=== PATIENT | female | born 1965 | race Caucasian/White ===

== ENCOUNTER 2020-10-30 16:56 | Inpatient (IN) | payer BC, OTHER ==
--- OUTSIDE RECORDS SUMMARY | 2020-10-30 16:58 | XMS REPORT | Continuity of Care Document ---
:1965 Author Organization [facility] t Address [address] [place] [address] Care Team Providers Name Role Phone Les BONILLA P. Primary Care Physician Hero BONILLA Attending Clinician Payers Payer Name Policy Type Policy Effective Date Expiration Date Sour ce Number AETNAAETNA PPO [id number] 2017 [facility] OPEN 00:00:00 [facility] [id number] 2017-Presen tPPO Problems Condition Condition Condition Status Onset Resolution Last Treating Co mments Source Name Details Category Date Date Treatment Clinician Date Prolapse Prolapse Disease Active [place] of female of female 03-31 Meth rick pelvic pelvic 00:00: st organs organs 00 Endometrio Endometrio Disease Active [facility] sis sis 03-31 Methodi 00:00: st 00 S/P S/P Disease Active [facility] appendecto appendecto 03-31 Me [facility] my my 00:00: st 00 History of History of Disease Active [place] hysterecto hysterecto 03-31 Me th[facility] my with my with 00:00: st oophorecto oophorecto 00 my my History of History of Disease Active [place] colitis colitis 03-31 Methodi 00:00: st 00 GERD GERD Disease Active [facility] (gastroeso (gastroeso 03-31 Me [facility] phageal phageal 00:00: st reflux reflux 00 disease) disease) IBS IBS Disease Active [facility] (irritable (irritable 03-31 Me [facility] bowel bowel 00:00: st syndrome) syndrome) 00 Hemorrhoid Hemorrhoid Disease Active [place] s s 03-31 Methodi 00:00: st 00 Menopausal Menopausal Disease Active [place] syndrome syndrome 03-18 Method i 00:00: st 00 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 Family History Family Member Diagnosis Comments Start Date Stop Date Source Natural father COPD [facility] Natural father Deep vein thrombosis [facility] Social History Social Habit Start Date Stop Date Quantity Comments Source Tobacco use and 2019-01-25 2019-01-25 Never used [facility] jayroodi exposure 00:00:00 00:00:00 Alcohol intake 2019-01-25 2019-01-25 Current drinker [place] [facility] 00:00:00 00:00:00 of alcohol (finding) Sex Ass[birth year] [facility] farida 00:00:00 00:00:00 Smoking Status Start Date Stop Date Source Never smoker [facility] t Medications Ordered Filled Start Stop Current Ordering Indication Dosage Frequency Signature Comments Components Source Medication Medication Date Date Medication? Clinician (SIG) Name Name omeprazole 2020- No 40mg Q.5D TAKE 1 [place] (PriLOSEC) 03-31- CAPSULE Metho di 40 MG 00:00: 23:59 ([address] capsule 00 :00 TOTAL) BY MOUTH 2 (TWO) TIMES A DAY FOR 60 DAYS. promethazin Yes 25mg Q4H Take 1 [place] e 1-09 tablet (25 [facility] (PHENERGAN) 00:00: mg total) s t 25 MG 00 by mouth tablet every 4 (four) hours as needed for nausea or vomiting for up to 50 doses. multivitami Yes 1{tbl} QD Take 1 [place] with 7-17 tablet by [facility] minerals 14:58: mouth st tablet 57 daily. omeprazole 2020- No 40mg Q.5D Take 1 [place] (PriLOSEC) 01-25-20 capsule Metho di 40 MG 00:00: 00:00 ([address] capsule 00 :00 total) by mouth 2 (two) times a day for 60 days. amitriptyli 2016-07 Yes History of TAKE 1 [facility] (ELAVIL) 2-22 IBS TABLET Method i 25 MG 00:00: NIGHTLY st tablet 00 diclofenac Yes Q.25D Apply [place] (VOLTAREN) 9-13 topically Meth rick 1 % gel 00:00: 4 (four) st 00 times a day. nystatin-tr 2013-07 Yes 1g Apply 1 g [place] iamcinolone 2-15 topically. Me thodi (MYCOLOG 00:00: st II) cream 00 esterified 2013-07 Yes TAKE 1 [place] estrogens 1-19 TABLET Metho di (MENEST) 00:00: INSTRUCTED st 0.625 MG 00 tablet Immunizations Ordered Immunization Filled Immunization Date Status Commen ts Source Name Name Uli 2016-03-24 Completed [facility] 00:00:00 [facility] Procedures This patient has no known procedures. Plan of Care Planned Activity Planned Date Details Comments Source Future Scheduled 2021-05-08 BREAST CANCER [facility] Me thodist Test 00:00:00 SCREENING [code = BREAST CANCER SCREENING] Future Scheduled 2019-07-12 COLONOSCOPY SCREENING [place] [facility] Test 00:00:00 [code = COLONOSCOPY SCREENING] Future Scheduled 2019-03-17 Screening for [facility] thodist Test 00:00:00 malignant neoplasm of cervix (procedure) [code = 199048158] Future Scheduled 2014 SHINGLES VACCINES [place] [facility] Test 00:00:00 (#1) [code = SHINGLES VACCINES (#1)] Future Scheduled 1982 Hepatitis C screening [place] [facility] Test 00:00:00 (procedure) [code = 996059537] Future Scheduled 1980 COVID-19 VACCINE (1) [facility] Test 00:00:00 [code = COVID-19 VACCINE (1)] Encounters Start End Encounter Admission Attending Care Care Encounter Source Date/Time Date/Time Type Type Clinicians Facility Department ID 2019-04-21 Outpatient [id number] 10:44:20 [facility] 2018-12-08 2018-12-08 Outpatient [facility] 7501 06:37:00 06:37:00 [facility] Results This patient has no known results.
[2020-10-30 17:57] LABS: Absolute Lymphocytes (CBC) 1.7 K/uL (0.7-4.9); Basophils % 0.3 % (0-1.3); Hematocrit 43.1 % (36.0-45.0); Lymphocytes % 19.1 % (15.3-44.8); MPV 8.9 fL (7.6-11.3)
--- NOTE | 2020-10-30 17:58 | RAD REPORT ---
EXAM DESCRIPTION: RAD - Chest Single View - 10/30/2020 5:15 pm CLINICAL HISTORY: DYSPNEA, COVID positive COMPARISON: None TECHNIQUE: AP portable chest image was obtained 10/30/2020 5:15 pm . FINDINGS: Dense consolidation is seen in the lateral mid left lung field with patchy alveolar opacit ies in each lower lung field. Right upper lung field is spared. Trachea is midline. Heart and vasculature are normal. No measurable pleural effusion and no pneumotho rax. No acute bony abnormality seen. No acute aortic findings suspected. IMPRESSION: Moderate-size pneumonia lateral mid left lung field with patchy opacification at each ba se. Bilateral COVID-19 pneumonia is the most likely etiology.
[2020-10-30 17:59] LABS: Protime INR 1.01
[2020-10-30 18:13] LABS: ALT/SGPT 46 U/L (12-78); AST/SGOT 34 U/L (15-37); Albumin 3.6 g/dL (3.4-5.0); Alkaline Phosphatase 127 U/L (45-117); BUN Blood Urea Nitrogen 22 mg/dL (7-18); Bicarbonate 25 mmol/L (21-32); Bilirubin Direct < 0.1 mg/dL (0-0.2); Bilirubin Total 0.2 mg/dL (0.2-1.0); Ferritin 48.5 ng/mL (8-388); Glucose Level 100 mg/dL (74-106); Lipase 104 U/L (73-393); Potassium 3.7 mmol/L (3.5-5.1); Protein, Total 7.5 g/dL (6.4-8.2); Sodium Level 140 mmol/L (136-145); Troponin (Emerg Dept Use Only) < 0.02 ng/mL (0.0-0.045)
--- NOTE | 2020-10-30 19:33 | RAD REPORT ---
EXAM DESCRIPTION: CT - Chest For Pe Angio - 10/30/2020 7:12 pm CLINICAL HISTORY: Chest pain;Dyspnea COMPARISON: Chest Single View dated 10/30/2020 TECHNIQUE: Dynamically enhanced 3 mm thick images of the chest were obtained during administration o f approximately 150mL Isovue 370 IV contrast. Coronal and oblique MIP reconstruction images were gene rated and reviewed. Exam utilizes a protocol to evaluate the pulmonary arterial tree. All CT scans are performed using dose optimization technique as appropriate and may include automated exposure control or mA/KV adjustment according to patient size. FINDINGS: No pulmonary emboli are identified. The aorta as imaged shows no acute or suspicious finding. No pericardial thickening or effusion. Moderate-size area of consolidation is seen in the peripheral aspect of the mid and upper aspect left upper lobe. Patchy ground-glass opacification seen in the bilateral lower lobes. Given the provided history, bilateral COVID-19 pneumonia is the single most likely etiology. No underlying mass or cavit ation. No pleural effusion or pleural thickening. No mediastinal or hilar suspicious masses. No chest wall masses or abnormal axillary lymphadenopathy. IMPRESSION: No pulmonary emboli identified. Bilateral COVID-19 pneumonia findings with moderately large left upper lobe pneumonia as the dominant finding.
--- NOTE | 2020-10-30 19:59 | EDPHYS ---
Physician Documentation [facility] Name: Wendi Castillo Age: 55 yrs Sex: Female : 1965 Arrival Date: 10/30/2020 Time: 17:01 Bed 18 Private MD: ED Physician Danish Correa HPI: 10/30 17:08 This 55 yrs old Female presents to ER via Ambulatory with complaints of jr8 Shortness Of Breath. 18:00 This 55 yrs old Female presents to ER via Ambulatory with complaints of jr8 Shortness Of Breath. 18:00 Patient presents with SOB after being dx with COVID 9 days ago. She reports her sats jr8 were in the 70% at home. She is unable to speak in full sentences and is tachypneic during interview. . Historical: - Allergies: 17:07 No Known Allergies; ll1 - PMHx: 17:07 GERD; Kidney stones; ll1 - PSHx: 17:07 neck/back sx; Hysterectomy; ll1 - Immunization history:: Flu vaccine is not up to date. - Social history:: Smoking status: Patient denies any tobacco usage or history of. ROS: 18:01 Abdomen/GI: Negative for abdominal pain, nausea, vomiting, diarrhea, and constipation, jr8 MS/Extremity: Negative for injury and deformity, Neuro: Negative for headache, weakness, numbness, tingling, and seizure. 18:01 Cardiovascular: Positive for chest pain. 18:01 Respiratory: Positive for shortness of breath, at rest. 18:05 All other systems are negative. jr8 Exam: 18:03 Chest/axilla: Normal chest wall appearance and motion. Nontender with no deformity. jr8 No lesions are appreciated. Back: No spinal tenderness. No costovertebral tenderness. Full range of motion. MS/ Extremity: Pulses equal, no cyanosis. Neurovascular intact. Full, normal range of motion. Neuro: Awake and alert, GCS 15, oriented to person, place, time, and situation. Cranial nerves II-XII grossly intact. Motor strength 5/5 in all extremities. Sensory grossly intact. Cerebellar exam normal. Normal gait. 18:03 Cardiovascular: Rate: normal, actual rate is 80 bpm, Rhythm: regular, Pulses: Pulses are 2+ in right radial artery and left radial artery. Heart sounds: normal. 18:03 Respiratory: moderate respiratory distress is noted, Respirations: labored breathing, that is moderate, grunting, that is moderate, tachypnea, that is moderate, Breath sounds: are clear throughout. Vital Signs: 15:45 BP 105 / 69; Pulse 95; Resp 30; Temp 97.1; Pulse Ox 89% on R/A; Weight 81.65 kg; Height ll1 5 ft. 8 in. (172.72 cm); Pain 7/10; 18:15 BP 127 / 79; Pulse 72; Resp 25 S; Pulse Ox 97% on R/A; jd3 19:48 BP 151 / 97; Pulse 71; Resp 32; Pulse Ox 88% on R/A; ea 21:16 BP 141 / 83; Pulse 71; Resp 28; Pulse Ox 100% on 4 lpm NC; ea 15:45 Body Mass Index 27.37 (81.65 kg, 172.72 cm) ll1 19:48 Pt placed on O2 at 2L ea MDM: 17:02 Patient medically screened. [facility] 19:56 Data reviewed: vital signs, nurses notes, lab test result(s), EKG, radiologic studies, [facility] CT scan, plain films. Data interpreted: Pulse oximetry: on room air is 88 %. Interpretation: hypoxia. Counseling: I had a detailed discussion with the patient and/or guardian regarding: the historical points, exam findings, and any diagnostic results supporting the discharge/admit diagnosis, lab results, radiology results, the need for further work-up and treatment in the hospital. 10/30 17:03 Order name: Blood Culture Adult (2) [facility] 10/30 17:03 Order name: BMP [facility] 10/30 17:03 Order name: C-Reactive Protein [facility] 10/30 17:03 Order name: CBC with Diff [facility] 10/30 17:03 Order name: D-Dimer [facility] 10/30 17:03 Order name: Ferritin [facility] 10/30 17:03 Order name: Lactate [facility] 10/30 17:03 Order name: LFT's [facility] 10/30 17:03 Order name: Lipase [facility] 10/30 17:03 Order name: Procalcitonin [facility] 10/30 17:03 Order name: PT-INR [facility] 10/30 17:03 Order name: Ptt, Activated; Complete Time: 18:46 [facility] 10/30 17:03 Order name: Troponin (emerg Dept Use Only); Complete Time: 18:23 [facility] 10/30 17:04 Order name: Blood Culture [facility] 10/30 17:03 Order name: CXR XRAY; Complete Time: 18:05 [facility] 10/30 17:04 Order name: Basic Metabolic Panel; Complete Time: 18:23 [facility] 10/30 17:04 Order name: C-Reactive Protein; Complete Time: 18:23 [facility] 10/30 17:04 Order name: CBC with Automated Diff; Complete Time: 18:46 [facility] 10/30 17:04 Order name: D-Dimer; Complete Time: 18:46 [facility] 10/30 17:04 Order name: Ferritin; Complete Time: 18:23 [facility] 10/30 17:04 Order name: Lactate; Complete Time: 18:46 [facility] 10/30 17:04 Order name: Liver (Hepatic) Function; Complete Time: 18:23 [facility] 10/30 17:04 Order name: Lipase; Complete Time: 18:23 [facility] 10/30 17:04 Order name: Procalcitonin; Complete Time: 18:46 [facility] 10/30 17:04 Order name: Protime (+INR); Complete Time: 18:46 [facility] 10/30 18:47 Order name: CT Chest For PE Angio; Complete Time: 19:47 [facility] 10/30 20:33 Order name: COVID-19 : Document "Date of Symptom Onset" if Symptomatic. 2 10/30 20:33 Order name: CORONAVIRUS [facility] 10/30 22:50 Order name: SARS-COV-2 RT PCR [facility] 10/30 17:03 Order name: EKG; Complete Time: 17:04 [facility] 10/30 17:03 Order name: Cardiac monitoring; Complete Time: 17:39 [facility] 10/30 17:03 Order name: Droplet/Contact Precautions; Complete Time: 17:39 [facility] 10/30 17:03 Order name: EKG - Nurse/Tech; Complete Time: 18:08 [facility] 10/30 17:03 Order name: IV Start; Complete Time: 17:38 [facility] 10/30 17:03 Order name: Labs collected and sent; Complete Time: 17:38 [facility] 10/30 17:03 Order name: O2 Per Protocol; Complete Time: 17:38 [facility] 10/30 17:03 Order name: O2 Sat Monitoring; Complete Time: 17:37 jr8 10/30 21:28 Order name: CONS Physician Consult EDMS Administered Medications: 20:15 Drug: SOLU-Medrol (methylPrednisoLONE) 125 mg Route: IVP; Site: right antecubital; ea 22:02 Follow up: Response: No adverse reaction ea Disposition: 10/31 06:59 Co-signature as Attending Physician, Danish Correa MD. rn Disposition: 10/30/20 19:58 Hospitalization ordered by Kait Guerrero for Inpatient Admission. Preliminary diagnosis are Acute respiratory failure with hypoxia, Pneumonia due to SARS-associated coronavirus. - Bed requested for Telemetry/MedSurg (Inpatient). - Status is Inpatient Admission. ea - Condition is Fair. - Problem is new. - Symptoms have improved. Signatures: Dispatcher [employer] EDMS Madeline Sequeira RN RN iw Nieto, Roman, MD MD rn Roszak, Josh, PA PA jr8 Francia Mcdowell RN RN ea Lewis, Lynsay, RN RN ll1 Corrections: (The following items were deleted from the chart) 10/30 22:36 19:58 Hospitalization Ordered by Kait Guerrero MD for Inpatient Admission. Preliminary iw diagnosis is Acute respiratory failure with hypoxia; Pneumonia due to SARS-associated coronavirus. Bed requested for Telemetry/MedSurg (Inpatient). Status is Inpatient Admission. Condition is Fair. Problem is new. Symptoms have improved. jr8 23:05 22:36 10/30/2020 19:58 Hospitalization Ordered by Kait Guerrero MD for Inpatient ea Admission. Preliminary diagnosis is Acute respiratory failure with hypoxia; Pneumonia due to SARS-associated coronavirus. Bed requested for Telemetry/MedSurg (Inpatient). Status is Inpatient Admission. Condition is Fair. Problem is new. Symptoms have improved. iw
--- NOTE | 2020-10-30 19:59 | ER ---
Nurse's Notes [facility] Name: Wendi Castillo Age: 55 yrs Sex: Female : 1965 Arrival Date: 10/30/2020 Time: 17:01 Bed 18 Private MD: Diagnosis: Acute respiratory failure with hypoxia;Pneumonia due to SARS-associated coronavirus Presentation: 10/30 15:45 Initial Sepsis Screen: Does the patient meet any 2 criteria? RR > 20 per min. HR > 90 ll1 bpm. Yes Does the patient have a suspected source of infection? Yes: Productive cough/pneumonia. Risk Assessment: Do you want to hurt yourself or someone else? Patient reports no desire to harm self or others. Onset of symptoms was October 22, 2020. 15:45 Acuity: SISSY 2 ll1 17:04 Chief complaint: Patient states: SOB for 4 days. Covid positive 10/22. Coronavirus ll1 screen: Client denies travel out of the [place] in the last 14 days. cough unrelated to allergies, difficulty breathing, shortness of breath, Client presents with at least one sign or symptom that may indicate coronavirus-19. Standard/surgical mask placed on the client. Ebola Screen: Patient denies travel to an Ebola-affected area in the 21 days before illness onset. 17:04 Method Of Arrival: Ambulatory ll1 Triage Assessment: 18:16 Respiratory: Onset: The symptoms/episode began/occurred gradually. jd3 Historical: - Allergies: 17:07 No Known Allergies; ll1 - PMHx: 17:07 GERD; Kidney stones; ll1 - PSHx: 17:07 neck/back sx; Hysterectomy; ll1 - Immunization history:: Flu vaccine is not up to date. - Social history:: Smoking status: Patient denies any tobacco usage or history of. Screenin:16 Abuse screen: Denies threats or abuse. Nutritional screening: No deficits noted. jd3 Tuberculosis screening: No symptoms or risk factors identified. Fall Risk Ambulatory Aid- None/Bed Rest/Nurse Assist (0 pts). Gait- Normal/Bed Rest/Wheelchair (0 pts) Mental Status- Oriented to own ability (0 pts). Total Culp Fall Scale indicates No Risk (0-24 pts). Assessment: 17:30 General: Appears in no apparent distress. comfortable, Behavior is calm, cooperative, jd3 appropriate for age. Pain: Complains of pain in chest Quality of pain is described as aching. Neuro: Level of Consciousness is awake, alert, obeys commands, Oriented to person, place, time, situation. Cardiovascular: Heart tones present Capillary refill Patient's skin is warm and dry. Rhythm is regular. Respiratory: Reports shortness of breath at rest cough that is non-productive, persistent Airway is patent Respiratory effort is even, shallow, Respiratory pattern is symmetrical, tachypnea Breath sounds are clear bilaterally. the patient has mild shortness of breath. GI: No signs and/or symptoms were reported involving the gastrointestinal system. : No signs and/or symptoms were reported regarding the genitourinary system. EENT: No signs and/or symptoms were reported regarding the EENT system. Derm: Skin is intact, Skin is dry, Skin is normal, Skin temperature is warm. Musculoskeletal: Circulation, motion, and sensation intact. Range of motion: intact in all extremities. 18:17 Reassessment: Patient appears in no apparent distress at this time. No changes from jd3 previously documented assessment. Patient and/or family updated on plan of care and expected duration. Pain level reassessed. 19:22 Reassessment: Patient and/or family updated on plan of care and expected duration. Pain ea level reassessed. Patient is alert, oriented x 3, equal unlabored respirations, skin warm/dry/pink. Returned from CT. 19:47 Reassessment: Pt ambulated to restroom sats dropped to 88% RA pt remains tachypneic, ea placed on O2 at 2 L per nasal cannula. 21:14 Reassessment: Patient and/or family updated on plan of care and expected duration. Pain ea level reassessed. Pt alert and oriented x 3, remains tachypneic, on O2 at 4L per nasal cannula. 22:47 Reassessment: Patient and/or family updated on plan of care and expected duration. Pain ea level reassessed. Pt admitted to fourth floor, Respirations remain tachypneic, pt remains on O2 \T\ 2L per nasal cannula. Vital Signs: 15:45 BP 105 / 69; Pulse 95; Resp 30; Temp 97.1; Pulse Ox 89% on R/A; Weight 81.65 kg; Height ll1 5 ft. 8 in. (172.72 cm); Pain 7/10; 18:15 BP 127 / 79; Pulse 72; Resp 25 S; Pulse Ox 97% on R/A; jd3 19:48 BP 151 / 97; Pulse 71; Resp 32; Pulse Ox 88% on R/A; ea 21:16 BP 141 / 83; Pulse 71; Resp 28; Pulse Ox 100% on 4 lpm NC; ea 15:45 Body Mass Index 27.37 (81.65 kg, 172.72 cm) ll1 19:48 Pt placed on O2 at 2L ea ED Course: 15:49 Arm band placed on Patient placed in an exam room, on a stretcher. ll1 17:01 Patient arrived in ED. ap3 17:02 Pierre Banegas PA is PHCP. jr8 17:02 Danish Correa MD is Attending Physician. jr8 17:06 Triage completed. ll1 17:14 CXR XRAY In Process Unspecified. EDMS 17:20 Dutch Gibson RN is Primary Nurse. jd3 17:25 Inserted saline lock: 20 gauge in right antecubital area, using aseptic technique. ca1 Blood collected. 17:25 Initial lab(s) drawn, by me, sent to lab. First set of blood cultures drawn by me. ca1 18:16 Patient has correct armband on for positive identification. Placed in gown. Bed in low jd3 position. Call light in reach. Side rails up X 1. personnel monitor on. Pulse ox on. NIBP on. 19:12 CT Chest For PE Angio In Process Unspecified. EDMS 19:12 Primary Nurse role handed off by Dutch Gibson RN mw2 19:21 Francia Mcdowell RN is Primary Nurse. ea 19:58 Kait Guerrero MD is Hospitalizing Provider. jr8 21:16 No provider procedures requiring assistance completed. Patient admitted, IV remains in ea place. Administered Medications: 20:15 Drug: SOLU-Medrol (methylPrednisoLONE) 125 mg Route: IVP; Site: right antecubital; ea 22:02 Follow up: Response: No adverse reaction ea Outcome: 19:58 Decision to Hospitalize by Provider. jr8 21:16 Instructed on the need for admit. ea 22:47 Condition: stable ea 23:03 Admitted to Med/surg accompanied by tech, room 405, with oxygen, Report called to ea Receiving nurse on fourth floor 23:05 Patient left the ED. ea Signatures: Dispatcher [employer] EDMS Pierre Banegas PA PA jr8 Francia Mcdowell RN RN Dutch Sauceda RN RN jd3 Bertha Garcia RN RN ap3 Fariha Anton mw2 Mariah Centeno RN RN ca1 Karla Palmer RN RN ll1 Corrections: (The following items were deleted from the chart) 17:29 17:28 Inserted saline lock: 20 gauge in right antecubital area, using aseptic ca1 technique. Blood collected. ca1 21:17 21:16 BP 141 / 83; Pulse 71bpm; Resp 18bpm; Pulse Ox 100% 4 lpm Nasal Cannula; ea pro
[2020-10-30] MEDS ORDERED: METHYLPREDNISOLONE 125 MG INJ ONE (20:26)
--- NOTE | 2020-10-30 22:16 | P.HP ---
Certification for Inpatient Patient admitted to: Inpatient With expected LOS: >2 Midnights Patient will require the following post-hospital care: None Practitioner: I am a practitioner with admitting privileges, knowledge of patient current condition, hospital course, and medical plan of care. Services: Services provided to patient in accordance with Admission requirements found in Title 42 Section 412.3 of the Code of Federal Regulations <Jagdeep Escalera - Last Filed: 10/30/20 22:11> Patient History Date of Service: 10/30/20 Reason for admission: covid pneumonia History of Present Illness: Ms. Castillo is a 55 yo female who presents with 4 days of weakness, fatigue, SOB, and cough, found to be COVID+ on 10/22. She says her symptoms initially started 9 days ago but have gradually worsened. She was given a steroid pack and antibiotics by her doctor with no improvement. Her spO2 at home was 88%. She denies chills, night sweats, nausea, vomiting, diarrhea. CT showed no PE, and bilateral COVID pneumonia findings with moderately large left upper lobe pneumonia as dominant finding. Home medications list reviewed: No - Past Medical/Surgical History Has patient received pneumonia vaccine in the past: No Diabetic: No -: kidney stones -: GERD -: hysterectomy -: neck surgery -: back surgery - Social History Smoking Status: Never smoker Alcohol use: No CD- Drugs: No Caffeine use: No Place of Residence: Home <Jagdeep Escalera - Last Filed: 10/30/20 22:11> Date of Service: 10/30/20 <Kait Guerrero - Last Filed: 11/01/20 16:28> Allergies No Known Allergies Allergy (Verified 04/27/17 21:27) Home Medications: Albuterol Inhaler [Ventolin Inhaler*] 2 puff IH Q6H PRN #1 hfa.aer.ad 10/31/20 Apixaban [Eliquis] 5 mg PO BID #30 tablet 10/31/20 Ascorbic Acid [Vitamin C*] 500 mg PO QID #120 tablet 10/31/20 Benzonatate [Tessalon Perle*] 100 mg PO TID PRN #60 cap 10/31/20 Cholecalciferol (Vitamin D3) [Vitamin D 1000 Iu Tab*] 4,000 unit PO DAILY #30 tab 10/31/20 Ivermectin 18 mg PO Q48H #18 tablet 10/31/20 Melatonin 10 mg PO BEDTIME PRN PRN #14 tablet 10/31/20 Omeprazole [Prilosec] 40 mg PO BID 10/31/20 Thiamine HCl [Vitamin B-1*] 200 mg PO DAILY #30 tablet 10/31/20 Zinc Sulfate [Zinc Sulfate*] 220 mg PO DAILY #60 cap 10/31/20 predniSONE [Prednisone*] 20 mg PO BID #20 tab 10/31/20 Review of Systems General: Weakness, Malaise, As per HPI Eyes: Unremarkable ENT: Unremarkable Respiratory: Cough, Shortness of Breath, SOB with Excertion, Pleuritic Pain, As per HPI Cardiovascular: Unremarkable Gastrointestinal: Unremarkable Genitourinary: Unremarkable Musculoskeletal: Unremarkable Integumentary: Unremarkable Neurological: Unremarkable Lymphatics: Unremarkable <Jagdeep Escalera - Last Filed: 10/30/20 22:11> Physical Examination - Physical Exam General: Alert, In no apparent distress, Oriented x3, Cooperative HEENT: Atraumatic, Normocephalic, PERRLA, Mucous membr. moist/pink, EOMI, Sclerae nonicteric Neck: Supple, 2+ carotid pulse no bruit, JVD not distended, No Thyromegaly, No LAD Respiratory: Diminished, Rhonchi/gurgles Cardiovascular: No edema, Normal pulses, Regular rate/rhythm, Normal S1 S2, No gallops, No rubs, No murmurs Capillary refill: <2 Seconds Gastrointestinal: Normal bowel sounds, Soft and benign, Non-distended, No ascites, No tenderness, No masses, No rebound, No guarding Musculoskeletal: No clubbing, No swelling, No contractures, No erythema, No tenderness, No warmth Integumentary: No rashes, No breakdown, No significant lesion, No tenderness/swelling, No erythema, No warmth, No cyanosis Neurological: Normal gait, Normal speech, Normal strength at 5/5 x4 extr, Normal tone, Sensation intact, Cranial nerves 3-12 intact, Normal affect Lymphatics: No axilla or inguinal lymphadenopathy - Studies Laboratory Data (last 24 hrs) 10/30/20 17:25: PT 11.6, INR 1.01, APTT 27.1 10/30/20 17:25: WBC 8.80, Hgb 14.3, Hct 43.1, Plt Count 345 10/30/20 17:25: Sodium 140, Potassium 3.7, BUN 22 H, Creatinine 0.82, Glucose 100, Total Bilirubin 0.2, AST 34, ALT 46, Alkaline Phosphatase 127 H, Lipase 104 <Jagdeep Escalera - Last Filed: 10/30/20 22:11> Assessment and Plan - Problems (Diagnosis) (1) Pneumonia due to COVID-19 virus Current Visit: Yes Status: Acute - Plan pulm, respiratory therapy consulted room air sats daily, evaluate for home o2 covid supplements, ivermectin, IV steroids daily CRP, ferritin continue to manage pain, cough Discharge Plan: Home Plan to discharge in: 48 Hours - Advance Directives Does patient have a Living Will: No Does patient have a Durable POA for Healthcare: No - Code Status/Comfort Care Code Status Assessed: Yes (full code) Critical Care: No Time Spent Managing Pts Care (In Minutes): 70 <Jagdeep Escalera S - Last Filed: 10/30/20 22:11> - Problems (Diagnosis) (1) Pneumonia due to COVID-19 virus Current Visit: Yes Status: Acute <Kait Guerrero - Last Filed: 11/01/20 16:28> Date of Service: 10/31/20 Chart reviewed and events noted. Agree with findings as mentioned above <Kait Guerrero - Last Filed: 11/01/20 16:28>
[2020-10-31] MEDS ORDERED: BENZONATATE 100 MG CAP PO PRN (01:29)
[2020-10-31] MEDS ORDERED: MORPHINE 2 MG/ML SYR IV PRN (01:29)
[2020-10-31] MEDS ORDERED: MELATONIN 5 MG TABLET PO PRN (01:29)
[2020-10-31] MEDS ORDERED: ACETAMINOPHEN 500 MG TAB PO PRN (01:29)
[2020-10-31] MEDS ORDERED: ONDANSETRON 4 MG/2 ML VIAL IV PRN (01:29)
[2020-10-31 04:59] LABS: Basophils % 0.1 % (0-1.3); Hematocrit 39.4 % (36.0-45.0); Lymphocytes % 20.1 % (15.3-44.8); MPV 8.5 fL (7.6-11.3); RBC Red Blood Cell Count 4.59 M/uL (3.86-4.86)
[2020-10-31 05:15] LABS: Albumin 3.3 g/dL (3.4-5.0); Bilirubin Total 0.3 mg/dL (0.2-1.0); C-Reactive Protein 46.1 mg/L (<3.00); Ferritin 45.9 ng/mL (8-388); Magnesium 2.2 mg/dL (1.8-2.4); Phosphorus 3.2 mg/dL (2.5-4.9); Potassium 4.2 mmol/L (3.5-5.1)
[2020-10-31 05:40] VITALS: BMI 27.2
[2020-10-31] MEDS: VITAMIN D 1000 UNIT TAB PO SCH (08:00)
[2020-10-31] MEDS: FAMOTIDINE 20 MG TAB PO SCH ×2 (08:00→20:25)
[2020-10-31] MEDS: ZINC SULFATE 220 MG CAP PO SCH (08:00)
[2020-10-31] MEDS: METHYLPREDNISOLONE 125 MG INJ IV SCH ×2 (08:00→20:25)
[2020-10-31] MEDS: THIAMINE HCL 100 MG TABLET PO SCH (08:00)
[2020-10-31] MEDS: ASCORBIC ACID 500 MG TABLET PO SCH ×4 (08:00→20:25)
[2020-10-31] MEDS: ENOXAPARIN 40 MG/0.4 ML SQ SCH (08:00)
[2020-10-31 08:34] LABS: Urine Appearance CLEAR (Clear); Urine Bilirubin NEGATIVE (Negataive); Urine Blood NEGATIVE (Negative); Urine Color YELLOW (Yellow); Urine Glucose NEGATIVE (Negative); Urine Protein NEGATIVE (Negative); Urine Specific Gravity >=1.030 (1.005-1.030); Urine Urobilinogen 0.2 mg/dL (0.2-1.0)
[2020-10-31 08:36] LABS: Urine Microscopic Reflex NO UMIC
--- NOTE | 2020-10-31 08:37 | P.CNS ---
Date of Consult: 10/31/20 Reason for Consult: Pneumonia due to navarro virus Chief Complaint: covid pneumonia History of Present Illness: Patient is 55 years of age presented with 4 day history of weakness shortness of breath cough was diagnosed with navarro virus on November 08 in and admitted with respiratory failure she is currently doing much better oxygenation satisfactor Allergies No Known Allergies Allergy (Verified 04/27/17 21:27) Home Medications: Amitriptyline [Elavil*] 10 mg PO BEDTIME 04/27/17 Multivit with Calcium,Iron,Min [Multiple Vitamins For Women] 1 each PO DAILY 6PM 04/27/17 Pantoprazole [Protonix Tab*] 40 mg PO BID 04/27/17 Nitrofuran Macro [Macrobid] 100 mg PO BID #10 cap 04/28/17 Oxybutynin Chloride [Ditropan] 10 mg PO DAILY #5 tab 04/28/17 Tramadol HCl [Ultram] 50 mg PO Q6HR #15 tablet 04/28/17 - Past Medical/Surgical History Diabetic: No -: kidney stones -: GERD -: hysterectomy -: neck surgery -: back surgery - Social History Alcohol use: Yes CD- Drugs: No Caffeine use: No Place of Residence: Home Review of Systems 10-point ROS is otherwise unremarkable Physical Examination Temp Pulse Resp BP Pulse Ox 97.1 F 84 24 H 115/73 96 10/31/20 08:00 10/31/20 08:00 10/31/20 08:00 10/31/20 08:00 10/31/20 08:00 Laboratory Data (last 24 hrs) 10/30/20 17:25: PT 11.6, INR 1.01, APTT 27.1 10/30/20 17:25: WBC 8.80, Hgb 14.3, Hct 43.1, Plt Count 345 10/30/20 17:25: Sodium 140, Potassium 3.7, BUN 22 H, Creatinine 0.82, Glucose 100, Total Bilirubin 0.2, AST 34, ALT 46, Alkaline Phosphatase 127 H, Lipase 104 - Problems (1) Pneumonia due to COVID-19 virus Current Visit: Yes Status: Acute Plan: Patient is 55 years of age admitted with pneumonia due to navarro virus CT scan reviewed plan to discharge on prednisone 20 mg twice a day for a week and then 10 mg twice a day low-dose anticoagulation with Eliquis so Xarelto if possible for aspirin continue with multi vitamin support labs reviewed
[2020-10-31] MEDS ORDERED: IVERMECTIN 3 MG TABLET PO SCH (10:00)
[2020-10-31] MEDS ORDERED: HYDROCODONE/CHLORPHEN 5 ML/OSYR PO PRN (16:33)
[2020-10-31] MEDS ORDERED: ALBUTEROL INHALER 60 PUFF/8 GM IH PRN (16:47)
[2020-10-31] MEDS ORDERED: AZITHROMYCIN IV 500 MG in NA CHLORIDE 0.9% 250 ML IVPB ONE (17:00)
[2020-10-31] MEDS ORDERED: Remdesivir 200 MG in NA CHLORIDE 0.9% 250 ML IV ONE (18:00)
[2020-11-01 03:56] LABS: Absolute Lymphocytes (CBC) 1.8 K/uL (0.7-4.9); Basophils % 0.5 % (0-1.3); Hematocrit 39.5 % (36.0-45.0); Lymphocytes % 10.5 % (15.3-44.8); MPV 8.6 fL (7.6-11.3); RBC Red Blood Cell Count 4.55 M/uL (3.86-4.86)
[2020-11-01 04:12] LABS: ALT/SGPT 36 U/L (12-78); AST/SGOT 18 U/L (15-37); Albumin 3.2 g/dL (3.4-5.0); Alkaline Phosphatase 117 U/L (45-117); BUN Blood Urea Nitrogen 18 mg/dL (7-18); Bicarbonate 22 mmol/L (21-32); Bilirubin Direct < 0.1 mg/dL (0-0.2); Bilirubin Total 0.2 mg/dL (0.2-1.0); Ferritin 39.3 ng/mL (8-388); Glucose Level 132 mg/dL (74-106); Potassium 4.1 mmol/L (3.5-5.1); Protein, Total 6.8 g/dL (6.4-8.2); Sodium Level 142 mmol/L (136-145)
[2020-11-01 04:59] LABS: Blood Morphology Comment NOT SEEN (NOT SEEN); Platelet Estimate ADEQ
[2020-11-01] MEDS: FAMOTIDINE 20 MG TAB PO SCH (07:55)
[2020-11-01] MEDS: METHYLPREDNISOLONE 125 MG INJ IV SCH (07:56)
[2020-11-01] MEDS: ASCORBIC ACID 500 MG TABLET PO SCH ×3 (07:56→16:06)
[2020-11-01] MEDS: THIAMINE HCL 100 MG TABLET PO SCH (07:56)
[2020-11-01] MEDS: VITAMIN D 1000 UNIT TAB PO SCH (07:56)
[2020-11-01] MEDS: ZINC SULFATE 220 MG CAP PO SCH (07:56)
[2020-11-01] MEDS: ENOXAPARIN 40 MG/0.4 ML SQ SCH (07:57)
--- NOTE | 2020-11-01 08:54 | P.PN ---
Subjective Date of Service: 10/31/20 Patient was very tachypneic sitting in bed; O2 sats had decreased to 89% and stayed there for 5-10 minutes and increased to 91% in bed. gets even more short of breath on ambulating; CT scan with significant infiltrates; inflammatory markers increased. Physical Examination - Vital Signs Temperature: 96.5 F Blood Pressure: 109/67 Pulse: 54 Respirations: 16 Pulse Ox (%): 98 - Physical Exam General: Alert, In no apparent distress, Oriented x3 Respiratory: Diminished Cardiovascular: Regular rate/rhythm, Normal S1 S2 Gastrointestinal: Normal bowel sounds, Soft and benign, Non-distended Musculoskeletal: No clubbing, No contractures Neurological: Normal gait, Normal strength at 5/5 x4 extr, Normal tone, Sensation intact, Cranial nerves 3-12 intact Assessment & Plan - Problems (Diagnosis) (1) Pneumonia due to COVID-19 virus Current Visit: Yes Status: Acute Discharge Plan: Home Plan to discharge in: 48 Hours - Advance Directives Does patient have a Living Will: No Does patient have a Durable POA for Healthcare: No - Code Status/Comfort Care Code Status Assessed: Yes Code Status: Full Code Critical Care: No
[2020-11-01] MEDS ORDERED: Remdesivir 100 MG in NA CHLORIDE 0.9% 250 ML IV SCH (09:00)
[2020-11-01] MEDS ORDERED: AZITHROMYCIN IV 250 MG in NA CHLORIDE 0.9% 250 ML IVPB SCH (09:00)
[2020-11-01 16:11] VITALS: O2SAT 93
[2020-11-01 16:28] VITALS: BP 109/67; TEMP 96.5
--- NOTE | 2020-11-01 16:30 | P.DS ---
Discharge Date: 11/01/20 Disposition: ROUTINE DISCHARGE Discharge Condition: GOOD Reason for Admission: covid pneumonia - Problems (1) Pneumonia due to COVID-19 virus Current Visit: Yes Status: Acute Brief History of Present Illness: Ms. Castillo is a 55 yo female who presents with 4 days of weakness, fatigue, SOB, and cough, found to be COVID+ on 10/22. She says her symptoms initially started 9 days ago but have gradually worsened. She was given a steroid pack and antibiotics by her doctor with no improvement. Her spO2 at home was 88%. She denies chills, night sweats, nausea, vomiting, diarrhea. CT showed no PE, and bilateral COVID pneumonia findings with moderately large left upper lobe pneumonia as dominant finding. Hospital Course: Patient is clinically doing well. Patient oxygenation had dropped a little bit into the 89th percentile and we had her on home oxygen. I have given her a couple low-dose the room to severe. She is on room air today and 94%. Whenever she exerts herself are oxygen level does drop when she recovers quickly. At this time she is stable for discharge home. Vital Signs/Physical Exam: Temp Pulse Resp BP Pulse Ox 96.5 F L 54 16 109/67 98 11/01/20 16:27 11/01/20 16:27 11/01/20 16:27 11/01/20 16:27 11/01/20 16:27 General: Alert, In no apparent distress, Oriented x3 Laboratory Data at Discharge: WBC 17.40 K/uL (4.3-10.9) H D 11/01/20 03:28 Hgb 12.7 g/dL (12.0-15.0) 11/01/20 03:28 Hct 39.5 % (36.0-45.0) 11/01/20 03:28 Plt Count 404 K/uL (152-406) D 11/01/20 03:28 PT 11.6 SECONDS (9.5-12.5) 10/30/20 17:25 INR 1.01 10/30/20 17:25 APTT 27.1 SECONDS (24.3-36.9) 10/30/20 17:25 Sodium 142 mmol/L (136-145) 11/01/20 03:28 Potassium 4.1 mmol/L (3.5-5.1) 11/01/20 03:28 BUN 18 mg/dL (7-18) 11/01/20 03:28 Creatinine 0.69 mg/dL (0.55-1.3) 11/01/20 03:28 Glucose 132 mg/dL (74-106) H 11/01/20 03:28 Phosphorus 3.2 mg/dL (2.5-4.9) 10/31/20 04:08 Magnesium 2.2 mg/dL (1.8-2.4) 10/31/20 04:08 Total Bilirubin 0.2 mg/dL (0.2-1.0) 11/01/20 03:28 AST 18 U/L (15-37) 11/01/20 03:28 ALT 36 U/L (12-78) 11/01/20 03:28 Alkaline Phosphatase 117 U/L (45-117) 11/01/20 03:28 Lipase 104 U/L (73-393) 10/30/20 17:25 Home Medications: Albuterol Inhaler [Ventolin Inhaler*] 2 puff IH Q6H PRN #1 hfa.aer.ad 10/31/20 Apixaban [Eliquis] 5 mg PO BID #30 tablet 10/31/20 Ascorbic Acid [Vitamin C*] 500 mg PO QID #120 tablet 10/31/20 Benzonatate [Tessalon Perle*] 100 mg PO TID PRN #60 cap 10/31/20 Cholecalciferol (Vitamin D3) [Vitamin D 1000 Iu Tab*] 4,000 unit PO DAILY #30 tab 10/31/20 Ivermectin 18 mg PO Q48H #18 tablet 10/31/20 Melatonin 10 mg PO BEDTIME PRN PRN #14 tablet 10/31/20 Omeprazole [Prilosec] 40 mg PO BID 10/31/20 Thiamine HCl [Vitamin B-1*] 200 mg PO DAILY #30 tablet 10/31/20 Zinc Sulfate [Zinc Sulfate*] 220 mg PO DAILY #60 cap 10/31/20 predniSONE [Prednisone*] 20 mg PO BID #20 tab 10/31/20 New Medications: Apixaban [Eliquis] 5 mg PO BID #30 tablet Ivermectin 18 mg PO Q48H #18 tablet Melatonin 10 mg PO BEDTIME PRN PRN #14 tablet PRN Reason: Insomnia predniSONE [Prednisone*] 20 mg PO BID #20 tab Benzonatate [Tessalon Perle*] 100 mg PO TID PRN #60 cap PRN Reason: Cough Albuterol Inhaler [Ventolin Inhaler*] 2 puff IH Q6H PRN #1 hfa.aer.ad PRN Reason: Shortness Of Breath Thiamine HCl [Vitamin B-1*] 200 mg PO DAILY #30 tablet Ascorbic Acid [Vitamin C*] 500 mg PO QID #120 tablet Cholecalciferol (Vitamin D3) [Vitamin D 1000 Iu Tab*] 4,000 unit PO DAILY #30 tab Zinc Sulfate [Zinc Sulfate*] 220 mg PO DAILY #60 cap Physician Discharge Instructions: OK TO DC IV AND DC HOME FOLLOW-UP WITH PRIMARY CARE PROVIDER IN 1-2 WEEKS FOLLOW-UP WITH Pulmonary IN 1-2 WEEKS RETURN TO THE ER IF symptoms worsen CALL or TEXT DR. GALAN AT [phone] IF ANY QUESTIONS REGARDING HOSPITAL STAY. PLEASE CALL THE FLOOR AT [phone] IF ANY MEDICATION OR NURSING QUESTIONS. Diet: AHA Activity: Fall precautions Followup: NONE,NONE [Primary Care Provider] - Time spent managing pt's care (in minutes): 35
== END 2020-11-01 18:30 | disposition home or self-care (01) | DRG 177 ==
LOC: ER 16:56 → ERHOLD 21:31 → 4TH 22:49
PROVIDERS: ADMIT Hospitalist; ATTEND Hospitalist
PROC: XW033E5 Introduction of Remdesivir Anti-infective into Peripheral Vein, Percutaneous Approach, New Technology Group 5 (ICD-10-PCS; principal; 2020-10-31)
DX: U07.1 COVID-19 (principal); J12.82 Pneumonia due to coronavirus disease 2019; J96.01 Acute respiratory failure with hypoxia; K21.9 Gastro-esophageal reflux disease without esophagitis; Z90.710 Acquired absence of both cervix and uterus; Z79.01 Long term (current) use of anticoagulants; Z79.52 Long term (current) use of systemic steroids; Z79.899 Other long term (current) drug therapy
CPT/HCPCS: 36415; 71045; 71275; 80048; 80053; 80076; 81003; 82248; 82728; 83605; 83690; 83735; 84100; 84145; 84484; 85025; 85379; 85610; 85730; 86140; 87040; 93005; 94760; 96374; 99285; J0456; J1650; J2405; J2930; J7050; Q9967; U0003